=== PATIENT | female | born 1985 | race Hispanic/Latino ===

== ENCOUNTER 2017-02-25 17:34 | Emergency (ER) | payer SELFPAY ==
[2017-02-25 17:50] VITALS: BP 128/93
== END 2017-02-25 18:46 | disposition left against medical advice (07) ==
LOC: ED 17:34
DX: Z53.21 Procedure and treatment not carried out due to patient leaving prior to being seen by health care provider (principal)

== ENCOUNTER 2018-10-01 14:28 | Outpatient (CLI) | payer OTHER ==
[2018-10-01 16:18] LABS: Hematocrit 36.4 % (30.3-42.9); Hemoglobin 12.5 gm/dl (10.1-14.3); Mean Corpuscular HGB Conc 34 % (30-34); Mean Corpuscular Volume 95 fl (79-97); Platelet Count 200 K/mm3 (140-440); Red Blood Count 3.84 M/mm3 (3.65-5.03); Red Cell Distribution Width 13.2 % (13.2-15.2)
[2018-10-01 17:22] LABS: Alanine Aminotransferase 20 units/L (7-56); Uric Acid 2.3 mg/dL (3.5-7.6)
[2018-10-01 17:44] LABS: Bacteria,Urine 1+ /HPF (Negative); Bilirubin,Urine NEG (Negative); Blood,Urine NEG (Negative); Color,Urine Yellow (Yellow); Mucus,Urine FEW /HPF; Protein,Urine <15 mg/dL mg/dL (Negative); Urobilinogen,Urine < 2.0 mg/dL (<2.0)
[2018-10-01 18:05] VITALS: BP 89/55
[2018-10-01] MEDS ORDERED: LACTATED RINGERS 500 ML IV ONE (18:56)
== END 2018-10-01 18:32 | disposition home or self-care (01) ==
LOC: TRG 14:28
PROVIDERS: ATTEND Obstetrics & Gynecology
DX: O47.02 False labor before 37 completed weeks of gestation, second trimester (principal); O99.332 Smoking (tobacco) complicating pregnancy, second trimester; F17.210 Nicotine dependence, cigarettes, uncomplicated; Z3A.24 24 weeks gestation of pregnancy
CPT/HCPCS: 36415; 59025; 81001; 82565; 83615; 84450; 84460; 84550; 85027

== ENCOUNTER 2018-10-25 12:28 | Outpatient (CLI) | payer OTHER ==
[2018-10-25] MEDS ORDERED: LACTATED RINGERS 500 ML IV ONE (12:53)
[2018-10-25 13:40] LABS: Bacteria,Urine 2+ /HPF (Negative); Bilirubin,Urine NEG (Negative); Blood,Urine NEG (Negative); Color,Urine Yellow (Yellow); Mucus,Urine FEW /HPF; Protein,Urine <15 mg/dL mg/dL (Negative); Urobilinogen,Urine < 2.0 mg/dL (<2.0)
[2018-10-25 14:21] LABS: Hematocrit 42.3 % (30.3-42.9); Hemoglobin 14.7 gm/dl (10.1-14.3); Mean Corpuscular HGB Conc 35 % (30-34); Mean Corpuscular Volume 95 fl (79-97); Platelet Count 174 K/mm3 (140-440); Red Blood Count 4.47 M/mm3 (3.65-5.03); Red Cell Distribution Width 13.4 % (13.2-15.2)
[2018-10-25 15:04] LABS: Bilirubin,Urine NEG (Negative); Blood,Urine NEG (Negative); Color,Urine Yellow (Yellow); Mucus,Urine 2+ /HPF; Protein,Urine <15 mg/dL mg/dL (Negative); Urobilinogen,Urine < 2.0 mg/dL (<2.0)
[2018-10-25 15:11] LABS: Alanine Aminotransferase 12 units/L (7-56); Uric Acid 2.7 mg/dL (3.5-7.6)
[2018-10-25 15:12] LABS: Amphetamine Screen,Urine PRESUMPTIVE NEGATIVE; Benzodiazepines Screen,Urine PRESUMPTIVE NEGATIVE; Cannabinoid Screen,Urine PRESUMPTIVE NEGATIVE; Cocaine Screen,Urine PRESUMPTIVE NEGATIVE; Methadone Screen,Urine PRESUMPTIVE NEGATIVE; Opiate Screen,Urine PRESUMPTIVE NEGATIVE
[2018-10-25 15:26] VITALS: BP 114/70
== END 2018-10-25 15:49 | disposition home or self-care (01) ==
LOC: TRG 12:28
PROVIDERS: ATTEND Obstetrics & Gynecology
DX: O47.03 False labor before 37 completed weeks of gestation, third trimester (principal); Z3A.29 29 weeks gestation of pregnancy
CPT/HCPCS: 36415; 59025; 80307; 81001; 82565; 83615; 84450; 84460; 84550; 85027

== ENCOUNTER 2019-01-04 07:30 | Inpatient (IN) | payer OTHER ==
--- NOTE | 2019-01-05 17:52 | History and Physical Report ---
History of Present Illness Date of examination: 12/30/18 Chief complaint: Twins with malpresentation, desires sterilization. She desires to proceed with delivery with bilateral salpingectomy for sterilization History of present illness: Past History : 5 Term Births: 2 Living Children: 2 Para: 2 Aborta: 2 Elect. Ab: 1 Spont. Ab: 1 # 1 Delivery date: 1998 Weeks Gestation: term labor: no Delivery type: Anesthesia type: epidural Delivery location: [facility] Sex: Male weight: 7#4 # 2 Delivery date: 2006 Weeks Gestation: term labor: no Delivery type: Anesthesia type: epidural Delivery location: [facility] Infant Sex: Female weight: 7#6 # 3 Delivery date: 2017 Weeks Gestation: ? Delivery type: EAB # 4 Delivery date: 10/2017 Weeks Gestation: 8-12 Delivery type: SAB Comments: incarcerated Past Medical History: Negative Past Medical History Past Surgical History: Negative Past Surgical History Past Medical History Surgery (Non-gynecological assistant): Negative Past Surgical History Abnormal PAP: positive, before 2009- coplo Family Hx: MGM - DM Social Hx: Single Smoker - 4 sticks per day no ETOH or drugs currently Infection History Hx of STD: HSV HIV Risk Eval: low risk Hepatitis B Risk Eval: low risk Personal hx. of genital herpes: yes Partner hx. of genital herpes: no Rash, Viral, or Febrile illness since last LMP? no Genetic History Congenital Heart Defect: Mom: no Dad: no Parris Disease: Mom: no Dad: no Thalassemia Mom: no Dad: no Neural Tube Defect Mom: no Dad: no Down's Syndrome Mom: no Dad: no Mark-Sachs Mom: no Dad: no Sickle Cell Disease/Trait Mom: no Dad: no Hemophilia Mom: no Dad: no Muscular Dystrophy Mom: no Dad: no Cystic Fibrosis Mom: no Dad: no [place] Chorea Mom: no Dad: no Mental Retardation Mom: no Dad: no Fragile X Mom: no Dad: no Other Genetic/Chromosomal Disorder Mom: no Dad: no Child w/other defect Mom: no Dad: no Enviromental Exposures Xray Exposure: no Medication, drug, or alcohol use since LMP: no Chemical/Other Exposure: no Exposure to Cat Liter: no Hx of Parvovirus (Fifth Disease): no Occupational Exposure to Children: none Current Allergies (reviewed today): No known allergies Past History - Obstetrical History Expected Date of Delivery: 01/17/19 Actual Gestation: 38 Week(s) 3 Day(s) : 7 Medications and Allergies Allergies Allergy/AdvReac Type Severity Reaction Status Date / Time No Known Allergies Allergy Verified 10/01/18 15:36 Home Medications Medication Instructions Recorded Confirmed Last Taken Type Sulfamethoxazole/Trimethoprim 1 each PO BID 7 Days tablet 05/26/14 Unknown Rx [Bactrim Ds] Active Meds: Active Medications Citric Acid/Sodium Citrate (Bicitra) 30 ml PO ONCE ONE Stop: 01/06/19 07:01 Famotidine (Pepcid) 20 mg IV ONCE ONE Stop: 01/06/19 07:01 Cefazolin Sodium (Ancef/Sterile Water 2 Gm/20 Ml) 2 gm in 20 mls @ 80 mls/hr IV PREOP NR; Protocol Stop: 01/06/19 23:59 Oxytocin/Sodium Chloride (Pitocin/Ns 20 Unit/1000ml Drip) 20 units in 1,000 mls @ 0 mls/hr IV TITR MARCO Lactated Ringer's (Lactated Ringers) 1,000 mls @ 2,250 mls/hr IV PREOP MARCO Stop: 01/07/19 05:57 Metoclopramide HCl (Reglan) 10 mg IV ONCE ONE Stop: 01/06/19 07:01 - Physical Exam Lungs: Positive: Normal air movement Extremities: Positive: normal - Obstetrical FHR: category 1 (x2) Uterine Contraction Monitor Mode: External Uterine Contraction Pattern: Irregular Results Result Diagrams: 01/06/19 07:04 All other labs normal. Assessment and Plan Options reviewed, US discussed. C/s explained along with risks for bleeding infection injury to bowel, bladder and other surrounding organs. Consents revie wed. Risks of regret emphasized. Permanent and irreversible condition explained to patient. Pt verbalized understanding.The risks and alternatives to sterilization were reviewed with the patient. Risk of ectopic explained...1% failure rate discussed. She desires tp proceed with C/S with salpingectomy for sterilization. - Patient Problems (1) 38 weeks gestation of Current Visit: Yes Status: Acute (2) Twin gestation in third trimester Current Visit: Yes Status: Acute (3) Drug abuse, amphetamine type Current Visit: No Status: Chronic (4) Sterilization Current Visit: Yes Status: Acute (5) Malpresentation of fetus Current Visit: Yes Status: Acute Qualifiers: malpresentation type: breech
[2019-01-06] MEDS ORDERED: LACTATED RINGERS 1,000 ML IV SCH ×2 (05:30→14:28)
[2019-01-06] MEDS ORDERED: PITOCin/NS 20 UNIT/1000ML DRIP 20 UNITS/1,000 ML BAG IV SCH ×2 (05:30→14:28)
[2019-01-06] MEDS ORDERED: BICITRA PO ONE (07:00)
[2019-01-06] MEDS ORDERED: ANCEF/STERILE WATER 2 GM/20 ML 2 GM/20 ML SYRINGE IV NR (07:00)
[2019-01-06] MEDS ORDERED: PEPCID IV ONE (07:00)
[2019-01-06] MEDS ORDERED: REGLAN IV ONE (07:00)
[2019-01-06 07:15] LABS: Hematocrit 41.3 % (30.3-42.9); Hemoglobin 14.3 gm/dl (10.1-14.3); Mean Corpuscular HGB Conc 35 % (30-34); Mean Corpuscular Volume 94 fl (79-97); Platelet Count 143 K/mm3 (140-440); Red Blood Count 4.38 M/mm3 (3.65-5.03); Red Cell Distribution Width 13.6 % (13.2-15.2)
[2019-01-06] MEDS ORDERED: BICITRA PO NR (09:30)
[2019-01-06] MEDS ORDERED: PEPCID IV NR (09:30)
[2019-01-06] MEDS ORDERED: REGLAN IV NR (09:30)
--- NOTE | 2019-01-06 09:41 | Anesthesia Day of Surgery ---
Anesthesia Day of Surgery - Day of Surgery Patient Examined: Yes Patient H&P Reviewed: Yes Patient is NPO: Yes
--- NOTE | 2019-01-06 09:41 | Anesthesia Consultation ---
Anesthesia Consult and Med Hx Date of service: 01/06/19 - Airway Anesthetic Teeth Evaluation: Good ROM Head & Neck: Adequate Mental/Hyoid Distance: Adequate Mallampati Class: Class II - Pulmonary Exam CTA: Yes - Pre-Operative Health Status ASA Pre-Surgery Classification: ASA2 - Pulmonary Hx Asthma: No COPD: No Hx Pneumonia: No - Cardiovascular System Hx Hypertension: No - Central Nervous System Hx Seizures: No Hx Psychiatric Problems: No - Endocrine Hx Renal Disease: No Hx End Stage Renal Disease: No Hx Hypothyroidism: No Hx Hyperthyroidism: No - Hematic Hx Anemia: No Hx Sickle Cell Disease: No - Other Systems Hx Alcohol Use: No
[2019-01-06] MEDS ORDERED: ZOFRAN ONE (09:45)
[2019-01-06] MEDS ORDERED: SUBLIMAZE ONE (09:45)
[2019-01-06] MEDS ORDERED: ANCEF/STERILE WATER 2 GM/20 ML IV ONE (10:20)
[2019-01-06] MEDS ORDERED: HEMABATE IM ONE ×2 (10:41→10:51)
[2019-01-06] MEDS ORDERED: LOMOTIL PO PRN (10:50)
[2019-01-06] MEDS ORDERED: METHERGINE IM ONE (10:51)
[2019-01-06] MEDS ORDERED: VERSED ONE (10:54)
[2019-01-06] MEDS ORDERED: TORADOL ONE (10:55)
[2019-01-06] MEDS ORDERED: BENADRYL ONE (10:55)
[2019-01-06] MEDS ORDERED: DILAUDID ONE (11:18)
--- NOTE | 2019-01-06 11:24 | Post Operative Note ---
Pre-op diagnosis: Twin gestation, breech, sterilization, GDM Post-op diagnosis: same Anesthesia: epidural Surgeon: KOLE GARCIA Estimated blood loss: other Pathology: list (placentas and tubes) Specimen disposition: to lab Condition: stable Disposition: PACU
[2019-01-06] MEDS ORDERED: PHENERGAN PO PRN (11:29)
[2019-01-06] MEDS ORDERED: PHENERGAN PR PRN ×2 (11:29→14:28)
[2019-01-06] MEDS ORDERED: NARCAN 0.4 MG/1 ML IV PRN ×2 (11:29→14:28)
[2019-01-06] MEDS ORDERED: DILAUDID IV PRN (11:29)
[2019-01-06] MEDS ORDERED: ZOFRAN IV PRN ×2 (11:29→14:28)
[2019-01-06] MEDS ORDERED: MORPHINE IV PRN ×2 (11:29→14:28)
--- NOTE | 2019-01-06 11:33 | Post Anesthesia Evaluation ---
- Post Anesthesia Evaluation Patient Participated: Yes Airway Patent: Yes Stable Respiratory Function: Yes Nausea/Vomiting: No Temp > 96.8F: Yes Pain Manageable: Yes Adequeate Hydration: Yes Anesthesia Complications: No Block Receding Appropriately: Yes Patient on Ventilator: Yes
[2019-01-06] MEDS ORDERED: SODIUM CHLORIDE FLUSH SYRINGE 10 ML IV NR (12:00)
[2019-01-06] MEDS ORDERED: TUCKS PAD TP PRN (14:28)
[2019-01-06] MEDS ORDERED: LANSINOH TP PRN (14:28)
[2019-01-06] MEDS ORDERED: TYLENOL PO PRN (14:28)
[2019-01-06] MEDS ORDERED: SODIUM CHLORIDE FLUSH SYRINGE 10 ML IV SCH (14:28)
[2019-01-06] MEDS ORDERED: MYLICON PO PRN (14:28)
[2019-01-06] MEDS: TORADOL IV PRN ×2 (16:14→22:02)
[2019-01-06] MEDS: ANCEF/NS 1 GM/50 ML 1 GM/50 ML BAG IV SCH (18:29)
[2019-01-06] MEDS: MORPHINE IV PRN (19:49)
[2019-01-06] MEDS: MILK OF MAGNESIA PO PRN (22:01)
--- NOTE | 2019-01-06 22:09 | Ultrasound Report ---
PROCEDURE: US OB LIMITED TECHNIQUE: Real-time limited sonographic examination was performed for evaluation of presentat ion for each fetus with image documentation (1 or more fetuses). HISTORY: twins, verify presentation COMPARISONS: None . FINDINGS: FETUS A: Position: Cephalic . Heart rate and rhythm: 137 BPM, Regular . FETUS B: Position: Breech . Heart rate and rhythm: 130 BPM, Regular . IMPRESSION: Twin intrauterine gestation. Fetus A cephalic presentation Fetus B breech presentation This document is electronically signed by Castillo Tierney MD., January 06 2019 10:07:04 PM ET
[2019-01-06 23:25] LABS: Hematocrit 34.9 % (30.3-42.9); Hemoglobin 12.3 gm/dl (10.1-14.3)
--- NOTE | 2019-01-07 01:07 | Operative Report ---
Operative Report Operative Report: Date: 01/06/2019 Preoperative diagnosis: 1. Intrauterine at 38 weeks gestation 2. Twin gestation Dichorionic diamniotic 3. Twin B breech presentation; desires primary delivery 4. Gestational diabetes 5. Desires sterilization Postoperative diagnosis: 1. Intrauterine at 38 weeks gestation 2. Twin gestation Dichorionic diamniotic 3. Twin B breech presentation; desires primary delivery 4. Gestational diabetes 5. Desires sterilization Procedure: 1. Low uterine transverse incision for delivery 2. Bilateral salpingectomy for sterilization Surgeon: Gala Novoa MD Plastic Installer: Patricia Mclaughlin CST Anesthesia: Epidural Anesthesiologist: Shayla Anderson M.D. Estimated blood loss: 700 mL Urine out: [] mL Findings: Twin A: Live born female . Weight 5 lbs. 11 oz. Apgars 8 at 1 minute and 9 at 5 minutes. Uterus grossly normal, tubes grossly normal, ovaries grossly normal Twin B: Live born male . Weight 6 lbs. 4 oz. Apgars 8 at 1 minute and 9 at 5 minutes. Delivered from the double footling breech position. Procedure: After risk, benefits, complications, consequences and alternatives for this procedure were discussed with patient and consents were reviewed and signed, she was taken to the OR where epidural anesthesia was placed. She was then placed in the left lateral tilt position, and prepped and draped in the usual sterile fashion. Timeout was performed, and an appropriate level of anesthesia was noted, a Pfannenstiel incision was made and extended to the fascia which was incised and extended in the lateral directions. The overlying fascia was sharply dissected away from the underlying rectus muscles in the superior and inferior directions. The midline was entered bluntly. The large Regis self-retaining retractor was placed. The vesicouterine fold was incised and with blunt dissection the bladder flap was created. A transverse incision was made in the lower uterine segment and extended in superiolateral direction with finger fractionation. Clear fluid was noted. The was delivered from cephalic position. Mouth and nose were bulb suctioned. Spontaneous cry and excellent tone were noted. Cord was doubly clamped and cut. The was given to /resuscitation team present. The membranes were ruptured for twin B. The infant was delivered from double footling breech position atraumatically and given to the resuscitation team present. The placentas were manually extracted. The uterus was then exteriorized and cleared of any further products of conception or placental tissue. The incision was reapproximated using 0 Vicryl in a running interlocking stitch. Grossly normal uterus, tubes and ovaries were noted. Once confirmation was obtained the patient proceed sterilization, the right fallopian tube was elevated with the Franky clamp and salpingectomy was performed using the 10 mm Enseal bipolar device. The same procedure was performed left fallopian tube. Tubes were sent to pathology. Once hemostasis was noted, the uterus was allowed back into the pelvic cavity. The pelvis was irrigated with warm normal saline. Attention was turned to the adnexa that was noted to be hemostatic. Surgicel applied for further hemostasis. Interceed was then placed to prevent adhesions. Then attention was turned to the rectus muscles. The rectus muscles reapproximated using 0 Vicryl in a simple interrupted stitch x 3. Once hemostasis was noted, the fascia was reapproximated using 0 Vicryl running stitch fashion. Once hemostasis was noted skin incision was reapproximated using 4-0 Vicryl on a George needle in a subcuticular manner. Counts were correct 3. Patient tolerated procedure well state recovery room in stable condition.
[2019-01-07] MEDS: MORPHINE IV PRN (01:10)
[2019-01-07] MEDS: ANCEF/NS 1 GM/50 ML 1 GM/50 ML BAG IV SCH (02:30)
[2019-01-07] MEDS: TORADOL IV PRN (04:10)
[2019-01-07] MEDS: PERCOCET 5/325 PO PRN ×3 (05:49→17:50)
[2019-01-07] MEDS ORDERED: BOOSTRIX IM ONE (06:00)
--- NOTE | 2019-01-07 09:08 | Progress Note ---
Assessment and Plan POD 1 s/p c/s. Patient reports "pain is horrible, I can't walk". Pt reports RN recently gave her percocet and "it's not working". Suggested patient take ibuprofen as she reports this has not been administered. Will place order if not in EMR. Will also try abdominal binder, will notify RN to initiate use. Fundus is firm, ML, U/1. Vaginal bleeding is scant, patient denies any heavy bleeding or clots. Incision is dressed, C/D/I. Encouraged pt to shower today and remove dressing after shower. She reports breast and bottle feeding, denies any breast complaints other than "the cramping is bad" while nursing. VSSAF. Reviewed post delivery labs with patient. She denies any dizziness or feeling faint with ambulation or position changes. Encouraged pt to continue ambulation and use of IS tp prevent pneumonia. Pt reports that she is drinking plenty of fluids and voiding appropriately, encouraged to increase water intake. Reviewed assessment with Dr. Minor and that patient does not have IV access, she reports she will assess if patient has received adequate antibiotics and follow up appropriately. Subjective - Subjective Date of service: 01/07/19 Patient reports: appetite normal, voiding normally, pain poorly controlled, ambulating normally (painful) : doing well Objective - Vital Signs Latest vital signs: Vital Signs Temp Pulse Resp BP BP Pulse Ox 01/07/19 07:23 97.5 F L 89 18 122/88 01/07/19 04:16 98.2 F 92 H 20 137/86 97 01/07/19 00:25 98.2 F 88 20 121/77 96 01/06/19 19:52 98.2 F 91 H 18 119/86 97 01/06/19 17:17 98.5 F 20 127/68 01/06/19 13:30 97.6 F 89 20 126/80 01/06/19 12:55 97.8 F 92 H 18 124/78 100 01/06/19 12:25 84 14 125/81 100 01/06/19 12:10 90 14 120/83 98 01/06/19 11:55 98 H 16 121/84 98 01/06/19 11:40 101 H 16 126/79 98 01/06/19 11:35 98 H 16 126/81 98 01/06/19 11:30 100 H 16 124/77 98 01/06/19 11:26 97.7 F 103 H 14 124/77 98 01/06/19 10:03 100 H 136/88 01/06/19 10:01 97.6 F 22 Intake and Output 01/06/19 01/07/19 01/07/19 23:59 07:59 15:59 Intake Total 290 600 Output Total 400 800 Balance -110 -200 Intake: IV 50 ANCEF/NS 1 GM/50 ML 1 gm 50 In 50 ml @ 100 mls/hr IV Q8H [facility] Rx#:[id number] Oral 240 600 Output: Urine 400 800 Indwelling Catheter 400 300 Void 500 Other: Total, Intake Amount 240 480 Total, Output Amount 400 500 - Exam Breasts: Present: normal Cardiovascular: Present: Regular rate, Normal S1, Normal S2 Lungs: Present: Clear to auscultation, Normal air movement Abdomen: Present: normal appearance, soft, normal bowel sounds Vulva: both: normal Uterus: Present: normal, firm Extremities: Present: normal Deep Tendon Reflex Grade: Normal +2 Incision: Present: dressed (C/D/I)
[2019-01-07] MEDS: IBUPROFEN PO PRN ×3 (09:48→17:49)
[2019-01-08] MEDS: IBUPROFEN PO PRN ×3 (00:11→12:13)
[2019-01-08] MEDS: PERCOCET 5/325 PO PRN ×3 (00:12→12:12)
--- NOTE | 2019-01-08 08:38 | Discharge Summary ---
Providers - Providers Date of Admission: 01/06/19 05:31 Date of discharge: 01/08/19 (patient desires discharge today) Attending physician: YOHANNES STANTON 01/06/19 14:28 Consult to General Cargo Clerk [CONS] Routine Reason For Exam: Primary care physician: YOHANNES STANTON Hospitalization Reason for admission: scheduled c/s for twins malpresentation Condition: Good Pertinent studies: post delivery H&H 12.3/34.9 Procedures: section Hospital course: uncomplicated section and post op course Disposition: DC-01 TO HOME OR SELFCARE Core Measure Documentation - Palliative Care Palliative Care/ Comfort Measures: Not Applicable - Core Measures Any of the following diagnoses?: none Exam - Constitutional Vitals: Temp Pulse Resp BP Pulse Ox 97.9 F 85 18 126/82 96 01/08/19 05:49 01/08/19 05:49 01/08/19 05:49 01/08/19 05:49 01/08/19 05:49 General appearance: Present: no acute distress, well-nourished - EENT Eyes: Present: PERRL ENT: hearing intact, clear oral mucosa - Neck Neck: Present: supple, normal ROM - Respiratory Respiratory effort: normal Respiratory: bilateral: CTA - Cardiovascular Rhythm: regular Heart Sounds: Present: S1 & S2. Absent: rub, click - Extremities Extremities: pulses symmetrical, No edema Peripheral Pulses: within normal limits - Abdominal General gastrointestinal: Present: soft, non-tender, non-distended, normal bowel sounds Female genitourinary: Present: normal - Integumentary Integumentary: Present: clear, warm, dry - Musculoskeletal Musculoskeletal: gait normal, strength equal bilaterally - Psychiatric Psychiatric: appropriate mood/affect, intact judgment & insight - Neurologic Neurologic: CNII-XII intact, moves all extremities - Additional findings Additional findings: Patient resting in bed, reports "I feel so much better, I want to go home today". Patient denies any complaints or concerns. Fundus is firm, ML, U/2. Vaginal bleeding is scant, patient denies any clots or heavy bleeding. Abdominal dressing removed. Patient tolerated well. Incision is well-approximated, healing well, no bleeding or drainage, no s/s infection. Patient reports pain is well controlled and tolerable with ibuprofen and percocet. Will discharge home with prescriptions. VSSAF. Reviewed post delivery labs with patient. She denies any dizziness or feeling faint with ambulation or position changed. DWP proper incision care/hygiene. Assisted RN with placement of abdominal binder on patient per patient request. She reports breast and bottle feeding, encouraged to nurse infants on demand, increase in water intake. Encouraged patient to continue frequent ambulation and use of IS. Plan Activity: advance as tolerated Diet: regular Wound: open to air, keep clean and dry Follow up with: YOHANNES STANTON MD [Primary Care Provider] - 7 Days (Congratulations! Please call [phone] to schedule your post-op incision check in 1 week. Please schedule your son's circumcision appointment in 1 week. Bring presctiption EMLA cream with you to his appointment and await further instructions for use. Call with any questions or concerns. ) Prescriptions: Docusate Sodium [Colace] 100 mg PO BID PRN #60 capsule PRN Reason: Constipation Lidocain2.5%/Prilocai2.5% [Emla] 5 gm TP ONCE #1 tube Ibuprofen [Motrin 800 MG tab] 800 mg PO TID PRN #30 tablet PRN Reason: Pain oxyCODONE /ACETAMINOPHEN [Percocet 5/325 mg] 1 - 2 tab PO Q4HR PRN #14 tablet PRN Reason: Pain
[2019-01-08] MEDS: MILK OF MAGNESIA PO PRN (12:12)
[2019-01-08 14:04] VITALS: BP 129/89
== END 2019-01-08 13:45 | disposition home or self-care (01) | DRG 765 ==
LOC: UNDOADMIN 01-06 05:31 → APU 01-06 05:31 → UNDOADMIN 01-06 10:47 → APU 01-06 10:47 → OB 01-06 13:42
PROVIDERS: ADMIT Obstetrics & Gynecology; ATTEND Obstetrics & Gynecology
PROC: 10D00Z1 Extraction of Products of Conception, Low, Open Approach (ICD-10-PCS; principal; 2019-01-06)
PROC: 0UB70ZZ Excision of Bilateral Fallopian Tubes, Open Approach (ICD-10-PCS; 2019-01-06)
PROC: 3E0234Z Introduction of Serum, Toxoid and Vaccine into Muscle, Percutaneous Approach (ICD-10-PCS; 2019-01-07)
DX: O32.8XX2 Maternal care for other malpresentation of fetus, fetus 2 (principal); O99.324 Drug use complicating childbirth; F17.210 Nicotine dependence, cigarettes, uncomplicated; F15.10 Other stimulant abuse, uncomplicated; O24.429 Gestational diabetes mellitus in childbirth, unspecified control; O99.334 Smoking (tobacco) complicating childbirth; O30.043 Twin pregnancy, dichorionic/diamniotic, third trimester; Z3A.38 38 weeks gestation of pregnancy; Z37.2 Twins, both liveborn; Z23 Encounter for immunization; Z83.3 Family history of diabetes mellitus
CPT/HCPCS: 36415; 76815; 82962; 85014; 85018; 85027; 86592; 86850; 86900; 86901; 88302; 88307; G0378; C9250; J0690; J1170; J1200; J1885; J2250; J2270; J2405; J2590; J2765; J3010; J7120